=== PATIENT | female | born 1955 ===

== ENCOUNTER 2018-10-02 13:45 | Outpatient (CLI) | payer BC ==
--- NOTE | 2018-10-02 14:45 | MMO ---
Bilateral MAMMO Bilat Screen [facility]. CLINICAL HISTORY: Patient is 63 years old and is seen for screening. The patient has no family history of breast cancer. The patient has no personal history of cancer. VIEWS: The views performed were: bilateral craniocaudal with tomosynthesis; bilateral mediolateral oblique with tomosynthesis; and bilateral exaggerated craniocaudal. FILMS COMPARED: The present examination has been compared to prior imaging studies performed at [facility] on 03/12/2004 and 06/30/2014. MAMMOGRAM FINDINGS: The breasts are heterogeneously dense, which could obscure a lesion on mammography. There are no suspicious masses, suspicious calcifications, or new areas of architectural distortion. IMPRESSION: THERE IS NO MAMMOGRAPHIC EVIDENCE OF MALIGNANCY. A ROUTINE FOLLOW-UP MAMMOGRAM IN 1 YEAR IS RECOMMENDED. THE RESULTS OF THIS EXAM WERE SENT TO THE PATIENT. ACR BI-RADS Category 1 - Negative MAMMOGRAPHY NOTE: 1. A negative mammogram report should not delay a biopsy if a dominant of clinically suspicious mass is present. 2. Approximately 10% to 15% of breast cancers are not detected by mammography. 3. Adenosis and dense breasts may obscure an underlying neoplasm.
--- NOTE | 2018-10-02 16:10 | BD ---
BONE DENSITOMETRY USING DEXA: Date: 10/02/18 HISTORY: Postmenopausal screening for osteoporosis. FINDINGS: Lumbar Spine: BMD (g/cm2) L1 0.534 T-Score: -4.1 Z-Score: -2.7 L2 0.511 T-Score: -4.7 Z-Score: -3.1 L3 0.503 T-Score: -5.3 Z-Score: -3.6 L4 0.427 T-Score: -5.8 Z-Score: -4.0 L1-L4 0.489 T-Score: -4.1 Z-Score: -3.4 Femoral Neck: 0.479 T-Score: -3.3 Z-Score: -1.9 Total Femur: 0.513 T-Score: -3.5 Z-Score: -2.4 IMPRESSION: Osteoporosis. POS: [facility]
== END 2018-10-02 13:46 | disposition home or self-care (01) ==
LOC: BICMAMMO 13:45
PROVIDERS: ATTEND Internal Medicine
DX: Z12.31 Encounter for screening mammogram for malignant neoplasm of breast (principal); Z13.820 Encounter for screening for osteoporosis; M81.0 Age-related osteoporosis without current pathological fracture
CPT/HCPCS: 77063; 77067; 77080